=== PATIENT | male | born 1945 | race Caucasian/White ===

== ENCOUNTER 2016-08-29 22:14 | Emergency (ER) | payer OTHER ==
[~2016-08-29 22:14] MED LIST: ATEN25TA PO; ATOR20TA PO; CLOB15CR2 TP; DILT240C89 PO; OMEP40CA36 PO; PRAZ1CAP2 PO; SALS750T16 PO; TRAM50TA2 PO
[2016-08-29 22:32] VITALS: BP 168/82; PULSE 81; RESP 18; O2SAT 98
--- NOTE | 2016-08-29 23:11 | ED.REPORT ---
HPI-URI / Cough / Cold Date of Service Aug 29, 2016 ED Provider: David Zuniga MD Patient is a 71 year old male with a history of hypertension, hyperlipidemia, and prior pneumonia who presents to the ED complaining of a productive cough that began earlier this week. The patient states that he first develop a cough and that he generally felt unwell. He states that he was working on his car the next day and that he became very fatigued. He went home to rest. He reports having chest congestion and nasal congestion. The patient has previously had a pneumonia shot and that he has had pneumonia 2x previously. The patient is concerned that he has pneumonia. He reports a subjective fever but states that he did not have a measurable fever. The patient is a former smoker. Nursing Notes Stated Complaint: HIGH BLOOD PRESSURE, CONGESTION Chief Complaint: Respiratory Complaints Nursing Notes Reviewed: Yes Allergies: Coded Allergies: No Known Allergies (Unverified Allergy, Unknown, 12/31/15) Scheduled Atenolol (Atenolol) 25 Mg Tablet 12.5 MG PO DAILY Atorvastatin (Lipitor) 20 Mg Tablet 20 MG PO QAM Azithromycin (Azithromycin) 500 Mg Tablet 500 MG PO DAILY Diltiazem ER (Diltiazem ER) 240 Mg Cap.er.24h 240 MG PO DAILY Omeprazole (Omeprazole) 40 Mg Capsule.dr 40 MG PO DAILY Prazosin (Prazosin) 1 Mg Capsule 3 MG PO QAM Salsalate (Salsalate) 750 Mg Tablet 750 MG PO QAM Scheduled PRN Clobetasol Propionate (Clobetasol Propionate) 15 Gm Cream..g. 15 GM TP BID PRN PRN rash Tramadol (Tramadol) 50 Mg Tablet 50-100 MG PO QID PRN PRN For Pain General Time Seen by MD: 23:09 Chief Complaint Cough, productive... Hx Obtained From: Patient Arrived By: Walk-in Onset Occurred: 5 days ago Symptom Duration: Since onset Recent Healthcare: No recent doctor visit, No recent hospitalization Similar Sx Previous: Yes Past Medical History Past Medical History GI bleed arthritis Reports: GERD, Hyperlipidemia, Hypertension Past Surgical History ruptured diverticulitis Partial colectomy and takedown for colostomy bag. Smoking History Former Smoker Social History Other Social History: Good social support, , Local resident Ambulatory Status Cane Review of Systems Constitutional: Denies: Fever (subjective) Ears / Nose / Throat: Reports: Nasal congestion, Sinus problem Respiratory: Reports: Non-productive cough, Prod cough, yellow Complete sys rev & neg: except as marked. Physical Exam Initial Vital Signs Vital Signs (First) Date Time Temp Pulse Resp B/P Pulse Ox O2 Delivery O2 Flow Rate FiO2 08/29/16 22:32 36.5 81 18 168/82 98 Room Air Initial VS: Reviewed, Vital signs normal Head / Eyes: Atraumatic, Normocephalic, PERRL Neck: Supple, Full range of motion Cardiovascular: Regular rate & rhythm, Heart sounds normal, Intact distal pulses Abdomen / GI: Soft, Non-tender Extremities: Vascular intact, Neuro intact, No swelling, No tenderness Skin: Warm, Dry, No cyanosis Neurologic: Alert, Oriented, Nonfocal Psychiatric: Mood/affect normal, Behavior normal, Normal thought content General/Constitutional: Awake, Alert, No acute distress ENT: Airway patent, Mucous membranes moist Respiratory / Chest: No respiratory distress Wheezing / Retractions: Positive: Wheeze insp/exp diffuse (all lung burns) Rales / Rhonchi: Positive: Rales diffuse (all lung burns), Rhonchi diffuse ( all lung burns) Interpretation & Diagnostics Lab Results Interpretation Result Diagram: 08/29/16 2334 08/29/16 2334 Test 08/29/16 23:34 White Blood Count 7.3th/mm3 (3.8-10.1) Red Blood Count 5.01mil/mm3 (4.40-5.80) Hemoglobin 13.0g/dL (13.8-17.2) Hematocrit 39.6% (41.0-50.0) Mean Corpuscular Volume 79.0fL (81-100) Mean Corpuscular Hemoglobin 25.9pg (27.0-35.0) Mean Corpuscular Hemoglobin Concent 32.8% (32.0-37.0) Red Cell Distribution Width 16.9% (12.3-15.4) Platelet Count 142bil/L (150-400) Neutrophils (%) (Auto) 78.9% (40-74) Lymphocytes (%) (Auto) 8.3% (14-46) Monocytes (%) (Auto) 11.6% (4-12) Eosinophils (%) (Auto) 0.8% (0-5) Basophils (%) (Auto) 0.3% (0-3) Sodium Level 135mEq/L (134-144) Potassium Level 3.9mEq/L (3.5-5.2) Chloride Level 98mEq/L (97-108) Carbon Dioxide Level 21mmol/L (18-29) Blood Urea Nitrogen 15mg/dL (8-27) Creatinine 0.98mg/dL (0.76-1.27) Estimat Glomerular Filtration Rate 80mL/min (>59) Glucose Level 126mg/dL (60-99) Calcium Level 9.0mg/dL (8.5-10.1) Total Bilirubin 0.3mg/dL (0.0-1.2) Aspartate Amino Transf (AST/SGOT) 22U/L (0-50) Alanine Aminotransferase (ALT/SGPT) 11U/L (0-44) Alkaline Phosphatase 81U/L (25-160) Troponin T 0.010ug/L (0.0-0.011) Pro-B-Type Natriuretic Peptide 149.4pg/mL (0-376) Total Protein 7.0g/dL (6.4-8.4) Albumin 4.1g/dL (3.4-5.0) Hold Kimball Top Tube Received (Received) Lab Results Interpretation: Thrombocytopenia ECG Interpretation ECG Interpretation: Sinus rhythm, Rate 78 Time: 23:50 Interpreted by: ED physician Normal ECG Interpretation: No acute ischemic changes X-Ray Chest Interpretation Chest Xray Interpretation: Impression: Left lower lobe pneumonia. View: AP & lat Interpretation / Wet Read by: Wet read ED physician Re-Eval/Medical Decision Med Decision/Clinical Course 71-year-old with a community-acquired left lower lobe pneumonia. He was treated with IV Zithromax and IV Rocephin in the emergency room. He will be discharged on azithromycin 500 mg by mouth 3 times a day, #3 prescribed. He also had good response to albuterol with improvement of his wheezing and cough ( reactive airways disease). He will be discharged home with an albuterol inhaler and spacer to use as needed for wheezing and cough. Source of Hx: Old records Re-Evaluation/Progress : Time of Eval: 01:29 Patient Status: Condition improved Re-Evaluation/Progress Note: Rechecked the patient. He is in the process of receiving his antibiotics. He feels improved after breathing treatment and will be discharged with an inhaler. Patient understands and agrees with the plan to be discharged home. Discharge instructions and follow-up discussed. All questions were addressed. Return to the ED warnings given. Counseled Regarding: Diagnosis, Lab results, Need for follow-up, When/why to return to ED Discharge & Departure Impression: Primary Impression: Pneumonia Pneumonia type: due to unspecified organism Laterality: left Lung location : lower lobe of lung Qualified Code: J18.9 - Pneumonia, unspecified organism Disposition: Home Discharge Condition All VS Reviewed: Yes Condition: Stable Patient Instructions: Community-acquired Pneumonia (ED) Additional Instructions: You received Rocephin IV antibiotic and azithromycin IV antibiotics continue azithromycin 500 mg daily for 3 more days. Albuterol inhaler with spacer, 2 puffs every 4-6 hours as needed for wheezing and cough, #1 dispensed. Follow- up with your regular doctor as needed for persistent symptoms. Referrals: [facility] Scribe Attestation Portions of this note were transcribed by Clara Kitchen. I, Dr. Zuniga personally performed the history, physical exam and medical decision-making; I reviewed and confirmed the accuracy of the information in the transcribed note. Signed by: Froylan Huddleston, 08/30/2016 0130 David Zuniga MD Aug 29, 2016 23:10 Clara Kitchen Aug 29, 2016 23:19
[2016-08-29 23:44] LABS: BASOPHILS % (AUTO) 0.3 % (0-3); EOSINOPHILS % (AUTO) 0.8 % (0-5); MONOCYTES % (AUTO) 11.6 % (4-12); Mean Corpuscular Hemoglobin 25.9 pg (27.0-35.0); NEUTROPHILS % (AUTO) 78.9 % (40-74); Platelet Count 142 bil/L (150-400)
[2016-08-29] MEDS ORDERED: 0.9% Sodium Chloride 1,000 ML IV ONE (23:56)
[2016-08-30] MEDS ORDERED: Albuterol-Ipratropium 3 mL Inhalation Solution NEB ONE
[2016-08-30] MEDS ORDERED: Albuterol 2.5 mg/3 mL Inhalation Solution NEB ONE
[2016-08-30] MEDS ORDERED: cefTRIAXone Inj 2,000 MG in Dextrose 5% Minibag Plus 50 ML IV ONE ×2
[2016-08-30] MEDS ORDERED: Azithromycin Inj 500 MG in Dextrose 5% w/Vial Mate 250 ML IV ONE ×2
[2016-08-30 00:21] VITALS: PULSE 77; RESP 23; O2SAT 91
[2016-08-30 00:28] LABS: TROPONIN T 0.01 ug/L (0.0-0.011)
[2016-08-30 00:37] VITALS: BP 164/75; PULSE 80; RESP 18; O2SAT 98
[2016-08-30] MEDS ORDERED: AZIT500T5 PO (01:33)
[2016-08-30] MEDS ORDERED: _Albuterol-HFA 60 Puff Inhaler INHALATION PRN (01:35)
[2016-08-30 02:17] VITALS: BP 134/61; PULSE 84; RESP 25; O2SAT 93
--- NOTE | 2016-08-30 09:14 | DRSVH ---
PROCEDURE: X-RAY CHEST, TWO VIEWS ([id number]) INDICATIONS: SOB TECHNIQUE: 2 views of the chest were acquired. COMPARISON: [facility], CR, CHEST 2VW, 06/29/2012, 22:49. FINDINGS: Surgical changes and devices: None. Lungs and pleura: No pleural effusions or pneumothorax. There is a new small peripheral indistinct nodular opacity in the left midlung zone measuring up to approximately 1.7 cm. Mediastinum: Mediastinal contours are normal. Heart size is normal. Bones and chest wall: No suspicious bony abnormalities. Soft tissues appear unremarkable. IMPRESSION: 1. New peripheral indistinct nodular opacity in the left lung measuring up 1.7 cm. Recommend follow up to demonstrate resolution. Findings discussed with Dr. Tim on 08/30/16 at 9 AM. Dictated by: Jonas Montero M.D. on 08/30/2016 at 9:03 Approved by: Jonas Montero M.D. on 08/30/2016 at 9:07
== END 2016-08-30 02:38 | disposition home or self-care (01) ==
LOC: SED 22:14
DX: J18.9 Pneumonia, unspecified organism (principal); R91.1 Solitary pulmonary nodule; I10 Essential (primary) hypertension; E78.5 Hyperlipidemia, unspecified; K21.9 Gastro-esophageal reflux disease without esophagitis; Z87.891 Personal history of nicotine dependence
CPT/HCPCS: 36415; 71020; 80053; 83880; 84484; 85025; 87040; 93005; 94640; 94664; 96365; 96367; 99285; J0456; J0696; J7030